=== PATIENT | female | born 1940 | race African-American/Black ===

== ENCOUNTER 2023-05-15 08:30 | Emergency (ER) | payer OTHER, MEDICAID ==
[~2023-05-15] VITALS: Ht 165.1 cm; Wt 60.0 kg
[~2023-05-15 08:30] MED LIST: CLOP-31 PO; diovan; lasix
[2023-05-15] MEDS ORDERED: LISINOPRIL 40MG TABLET PO ONE (10:30)
[2023-05-15] MEDS ORDERED: AMLODIPINE 10MG TABLET PO ONE (10:30)
[2023-05-15] MEDS ORDERED: HYDROCHLOROTHIAZIDE 25MG TABLET PO ONE (10:30)
[2023-05-15] MEDS ORDERED: FURO20TA4 MT (13:29)
[2023-05-15] MEDS ORDERED: CHOL100036 PO (13:29)
[2023-05-15] MEDS ORDERED: PRAV80TA21 MT (13:29)
[2023-05-15] MEDS ORDERED: CLOP75TA33 PO (13:29)
[2023-05-15] MEDS ORDERED: ALBU18HF2 IH (13:29)
[2023-05-15] MEDS ORDERED: CARV25TA47 MT (13:29)
[2023-05-15] MEDS ORDERED: LISI40TA13 MT (13:29)
[2023-05-15] MEDS ORDERED: GABA-529 MT (13:29)
[2023-05-15] MEDS ORDERED: AMLO10TA80 MT (13:29)
[2023-05-15] MEDS ORDERED: ISOS10TA2 MT (13:29)
[2023-05-15] MEDS ORDERED: MULT-1195 MT (13:29)
[2023-05-15] MEDS ORDERED: POTA10CA43 MT (13:29)
[2023-05-15] MEDS ORDERED: CALC-267 MT (13:29)
[2023-05-15] MEDS ORDERED: OMEP40CA20 MT (13:29)
[2023-05-15 14:00] VITALS: BP 209/88
== END 2023-05-15 14:06 | disposition home or self-care (01) ==
LOC: ER 08:30
DX: M48.56XA Collapsed vertebra, not elsewhere classified, lumbar region, initial encounter for fracture (principal); I10 Essential (primary) hypertension; E78.00 Pure hypercholesterolemia, unspecified; Z98.890 Other specified postprocedural states; Z91.148 Patient's other noncompliance with medication regimen for other reason; Z86.73 Personal history of transient ischemic attack (TIA), and cerebral infarction without residual deficits
CPT/HCPCS: 72100; 99285